=== PATIENT | female | born 1995 | race Caucasian/White ===

== ENCOUNTER 2019-06-04 03:28 | Emergency (ER) | payer OTHER ==
[~2019-06-04] VITALS: Ht 165.1 cm; Wt 68.0 kg
[2019-06-04 04:37] LABS: URINE BILIRUBIN NEGATIVE (Negative); URINE BLOOD 1+ (Negative); URINE CLARITY SL CLOUDY; URINE COLOR YELLOW; URINE GLUCOSE-RANDOM* NEGATIVE (Negative); URINE KETONES NEGATIVE (Negative); URINE PROTEIN (DIPSTICK) NEGATIVE (Negative); URINE UROBILINOGEN 0.2 E.U./dl (0.2-1.0)
[2019-06-04 04:39] LABS: URINE LEUKOCYTES-REFLEX 2+ (Negative); URINE NITRITE-REFLEX POSITIVE (Negative)
[2019-06-04] MEDS ORDERED: ACYCLOVIR 400400 MG PO (05:11)
[2019-06-04 05:14] LABS: BACTERIA-REFLEX >30 Many /HPF (None Seen); CASTS None Seen /LPF (None Seen); CRYSTALS None Seen /LPF (None Seen); MUCUS 0-3 Light strn/LPF (None Seen); SQUAMOUS 0-3 Few /LPF (0-3); URINE RBC 3-10 Few /HPF (0-2); WBC CLUMPS Few (None Seen)
[2019-06-04] MEDS ORDERED: CIPROFLOXACIN500 M1 PO (05:56)
[2019-06-04 06:33] VITALS: BP 107/77
== END 2019-06-04 06:43 | disposition home or self-care (01) ==
LOC: ER 03:28
PROVIDERS: Emergency Medicine
DX: A60.09 Herpesviral infection of other urogenital tract (principal); N39.0 Urinary tract infection, site not specified; A60.04 Herpesviral vulvovaginitis; F17.210 Nicotine dependence, cigarettes, uncomplicated